=== PATIENT | female | born 1950 | race Caucasian/White ===

== ENCOUNTER 2016-12-12 14:41 | Outpatient (CLI) | payer OTHER ==
--- NOTE | 2016-12-13 12:43 | Mammography Report ---
DIGITAL BILATERAL MAMMOGRAPHY: 12/12/2016 HISTORY: Routine screening. COMPARISON: 08/22/2012 and 10/20/2009. TECHNIQUE: Bilateral digital CC and MLO projections. FINDINGS: There are scattered fibroglandular densities. A nodular density in the right upper outer quadrant is stable. Several scattered benign-appearing calcifications are also stable. No new domin ant mass, architectural distortion, skin thickening, suspicious microcalcifications, or interval noble ge. IMPRESSION: NEGATIVE, BI-RADS 1. SUGGEST ROUTINE FOLLOWUP IN 12 MONTHS UNLESS THERE IS A CLINICAL C HANGE. STANDARD QUALIFYING STATEMENTS 1. This examination was reviewed with the aid of Computer-Aided Detection (CAD). 2. A negative or benign imaging report should not delay biopsy if clinically suspicious findings are present. Consider surgical consultation if warranted. More than 5% of cancers are not identified by i maging. 3. Dense breasts may obscure an underlying neoplasm. JOB #: [id number] EXT JOB #:[id number]
== END 2016-12-12 14:42 | disposition home or self-care (01) ==
LOC: DI 14:41
PROVIDERS: ATTEND Physician Assistant Medical
DX: Z12.31 Encounter for screening mammogram for malignant neoplasm of breast (principal)
CPT/HCPCS: 77067

== ENCOUNTER 2017-03-21 08:26 | Outpatient (CLI) | payer OTHER | END 2017-03-21 08:27 | disposition home or self-care (01) | LOC: LAB 08:26 | PROVIDERS: ATTEND Physician Assistant | DX: I82.622 Acute embolism and thrombosis of deep veins of left upper extremity (principal); Z86.718 Personal history of other venous thrombosis and embolism | CPT/HCPCS: 36415; 85610 ==

== ENCOUNTER 2017-04-23 14:31 | Outpatient (CLI) | payer OTHER | END 2017-04-23 14:32 | disposition home or self-care (01) | LOC: LAB 14:31 | PROVIDERS: ATTEND Physician Assistant | DX: I82.622 Acute embolism and thrombosis of deep veins of left upper extremity (principal) | CPT/HCPCS: 85610 ==

== ENCOUNTER 2017-05-08 07:52 | Outpatient (CLI) | payer OTHER ==
[2017-05-08 08:04] LABS: BASOPHILS # (AUTO) 0.1 10^3/uL (0.0-0.1); BASOPHILS % (AUTO) 1.1 %; EOSINOPHILS # (AUTO) 0.2 10^3/uL (0.0-0.7); HGB - HEMOGLOBIN 12.1 g/dL (12.0-16.0); LYMPHOCYTES # (AUTO) 2.2 10^3/uL (1.5-3.5); MEAN CORPUSCULAR HGB CONC 32.7 g/dL (32.0-36.0); MEAN CORPUSCULAR VOLUME 79.6 fL (81.0-99.0); MEAN PLATELET VOLUME 7.3 fL (7.9-10.8); MONOCYTES # (AUTO) 0.6 10^3/uL (0.0-1.0); MONOCYTES % (AUTO) 6.2 %; NEUTROPHILS # (AUTO) 6.5 10^3/uL (1.5-6.6); NEUTROPHILS % (AUTO) 67.7 %; PLT - PLATELET COUNT 235 10^3/uL (130-450); RED BLOOD COUNT 4.63 10^6/uL (4.20-5.40); RED CELL DISTRIBUTION WIDTH 15.2 % (12.0-15.0); WHITE BLOOD COUNT 9.5 x10^3/uL (4.8-10.8)
[2017-05-08 08:28] LABS: ALBUMIN 4.4 g/dL (3.2-5.5); ALBUMIN/GLOBULIN RATIO 1.4 (1.0-2.2); BILIRUBIN,TOTAL 0.5 mg/dL (0.2-1.0); CALCIUM 9.4 mg/dL (8.5-10.3); CREATININE 0.8 mg/dL (0.4-1.0); TOTAL PROTEIN 7.5 g/dL (6.7-8.2)
== END 2017-05-08 07:53 | disposition home or self-care (01) ==
LOC: LAB 07:52
DX: I82.A19 Acute embolism and thrombosis of unspecified axillary vein (principal)
CPT/HCPCS: 36415; 80053; 85025; 85379

== ENCOUNTER 2017-06-11 08:13 | Outpatient (CLI) | payer OTHER ==
[2017-06-11 09:42] LABS: THYROID STIMULATING HORMONE 2.3 uIU/mL (0.34-5.60)
[2017-06-11 09:44] LABS: FREE T4 (FREE THYROXINE) 1.06 ng/dL (0.58-1.64)
== END 2017-06-11 08:14 | disposition home or self-care (01) ==
LOC: LAB 08:13
DX: L65.9 Nonscarring hair loss, unspecified (principal)
CPT/HCPCS: 36415; 82627; 84403; 84439; 84443